=== PATIENT | male | born 1980 | race Caucasian/White ===

== ENCOUNTER 2021-06-14 20:40 | Inpatient (IN) | payer OTHER ==
[~2021-06-14] VITALS: Ht 175.3 cm; Wt 70.2 kg
[2021-06-14] MEDS ORDERED: CEPHALEXIN MONOHYDRATE 500 MG CAPSULE PO ONE (23:15)
[2021-06-14] MEDS ORDERED: IBUPROFEN 600 MG TABLET PO ONE (23:15)
[2021-06-14] MEDS ORDERED: SULFAMETHOX/TRIMETH DS 800-160 MG/TABLET PO ONE (23:15)
[2021-06-15] MEDS ORDERED: VANCOMYCIN HCL 1 GM/D5% WATER 200 ML IV ONE (02:15)
[2021-06-15 02:18] LABS: BASOPHILS % (AUTO) 0.6 % (0.0-2.0); EOSINOPHILS % (AUTO) 1.9 % (1.0-6.0); HEMATOCRIT 36.7 % (41-53); HEMOGLOBIN 12.3 g/dL (13.5-17.5); LYMPHOCYTES # (AUTO) 2.7 K/uL (1.0-4.8); LYMPHOCYTES % (AUTO) 34.2 % (22.0-44.0); MEAN CORPUSCULAR HEMOGLOBIN 28.3 pg (26.0-34.0); MEAN CORPUSCULAR HGB CONC 33.4 G/dL (31.0-37.0); MEAN CORPUSCULAR VOLUME 85 fL (80-100); MONOCYTES # (AUTO) 1.1 K/uL (0.1-1.0); MONOCYTES % (AUTO) 13.7 % (2.0-9.0); NEUTROPHILS # (AUTO) 3.9 K/uL (1.8-7.7); NEUTROPHILS % (AUTO) 49.6 % (40.0-70.0); PLATELET COUNT (AUTO) 418 K/uL (150-450); RED BLOOD CELL COUNT(AUTO) 4.33 MIL/uL (4.50-5.90); RED CELL DISTRIBUTION WIDTH 14.4 % (11.5-14.5)
[2021-06-15 02:31] LABS: ANION GAP 7 mmol/L (8-16); CALCIUM, TOTAL 8.5 mg/dL (8.8-10.5); CARBON DIOXIDE 29 mmol/L (22-29); CHLORIDE 102 mmol/L (98-107); CREATININE 0.92 mg/dL (0.60-1.30); GLOMERULAR FILTR. RATE CALC > 60 mL/min (>60); GLUCOSE,RANDOM 83 mg/dL (70-110); POTASSIUM 3.5 mmol/L (3.5-5.1); SODIUM SERUM 138 mmol/L (136-145); UREA NITROGEN, BLOOD 13 mg/dL (7-18)
[2021-06-15 02:37] LABS: ALANINE AMINOTRANSFERASE 24 U/L (12-78); ALBUMIN 3.1 g/dL (3.4-5.0); ALKALINE PHOSPHATASE 99 U/L (46-116); ASPARTATE AMINOTRANSFERASE 22 U/L (15-37); BILIRUBIN,TOTAL 0.4 mg/dL (0.1-1.0); TOTAL PROTEIN, SERUM 7.3 g/dL (6.4-8.2)
[2021-06-15] MEDS ORDERED: SODIUM CHLORIDE 0.9% 100 ML ONE (02:45)
[2021-06-15] MEDS ORDERED: IOHEXOL 350 MG/ML 100 ML VIAL ONE (02:45)
[2021-06-15 04:12] LABS: ERYTHROCYTE SEDIMENTATION RATE 17 MM/HR (0-15)
[2021-06-15 04:15] LABS: COVID AG,FIA SOURCE NASOPHARYNGEAL
[2021-06-15] MEDS ORDERED: ONDANSETRON HCL 4 MG/2 ML VIAL IVP PRN (04:30)
[2021-06-15] MEDS: HEPARIN SODIUM,PORCINE 5,000 UNITS/ML VIAL SQ SCH ×2 (08:41→16:26)
[2021-06-15 11:48] VITALS: BP 108/64
[2021-06-15] MEDS ORDERED: ASPI-1450 PO (12:42)
[2021-06-15] MEDS ORDERED: BICT1TAB PO (12:42)
[2021-06-15] MEDS ORDERED: ARIP10TA38 PO (12:42)
[2021-06-15] MEDS ORDERED: GABA-1181 PO (12:42)
[2021-06-15] MEDS ORDERED: ASPI-1444 PO (12:44)
[2021-06-15] MEDS ORDERED: *CLINICAL-CEFEPIME DOSING CLINICAL ONE (13:00)
[2021-06-15] MEDS ORDERED: VANCOMYCIN HCL 750 MG in DEXTROSE 5%-WATER 250 ML IV SCH (14:00)
[2021-06-15] MEDS ORDERED: CEFEPIME HCL 2 GM in DEXTROSE 5%-WATER 50 ML IV SCH (14:00)
[2021-06-15] MEDS: BICTEGRAV/EMTRICIT/TENOFOV ALA 50-200-25 MG TABLET PO SCH (14:05)
[2021-06-15] MEDS: ASPIRIN 81 MG DR TABLET PO SCH (14:05)
[2021-06-15] MEDS: ARIPiprazole 10 MG TABLET PO SCH (14:05)
[2021-06-15] MEDS: SODIUM CHLORIDE 0.9% 1,000 ML IV SCH (14:06)
[2021-06-15 15:11] VITALS: BP 96/55
[2021-06-15 18:32] LABS: AMPHET/METH SCREEN,URINE POSITIVE (NEGATIVE); BARBITURATE SCREEN, URINE NEGATIVE (NEGATIVE); BENZODIAZEPINES SCREEN,URINE NEGATIVE (NEGATIVE); CANNABINOID SCREEN,URINE POSITIVE (NEGATIVE); COCAINE SCREEN,URINE NEGATIVE (NEGATIVE); METHADONE SCREEN, URINE NEGATIVE (NEGATIVE); OPIATE SCREEN,URINE NEGATIVE (NEGATIVE)
[2021-06-15 18:34] LABS: PHENCYCLIDINE SCREEN,URINE NEGATIVE (NEGATIVE)
[2021-06-15 19:30] VITALS: BP 98/66
[2021-06-15] MEDS: GABAPENTIN 300 MG CAPSULE PO SCH (21:05)
[2021-06-16 04:58] VITALS: BP 128/73
[2021-06-16 06:24] LABS: BASOPHILS % (AUTO) 0.4 % (0.0-2.0); EOSINOPHILS % (AUTO) 2.3 % (1.0-6.0); HEMATOCRIT 40.3 % (41-53); HEMOGLOBIN 13.3 g/dL (13.5-17.5); LYMPHOCYTES # (AUTO) 2.4 K/uL (1.0-4.8); LYMPHOCYTES % (AUTO) 34.5 % (22.0-44.0); MEAN CORPUSCULAR HEMOGLOBIN 28.2 pg (26.0-34.0); MEAN CORPUSCULAR VOLUME 86 fL (80-100); MONOCYTES # (AUTO) 0.9 K/uL (0.1-1.0); MONOCYTES % (AUTO) 13.3 % (2.0-9.0); NEUTROPHILS # (AUTO) 3.4 K/uL (1.8-7.7); NEUTROPHILS % (AUTO) 49.5 % (40.0-70.0); PLATELET COUNT (AUTO) 393 K/uL (150-450); RED BLOOD CELL COUNT(AUTO) 4.72 MIL/uL (4.50-5.90); RED CELL DISTRIBUTION WIDTH 14.2 % (11.5-14.5)
[2021-06-16 06:43] LABS: ALANINE AMINOTRANSFERASE 20 U/L (12-78); ALBUMIN 2.9 g/dL (3.4-5.0); ALKALINE PHOSPHATASE 94 U/L (46-116); ANION GAP 9 mmol/L (8-16); ASPARTATE AMINOTRANSFERASE 19 U/L (15-37); BILIRUBIN,TOTAL 0.4 mg/dL (0.1-1.0); CALCIUM, TOTAL 8.7 mg/dL (8.8-10.5); CARBON DIOXIDE 25 mmol/L (22-29); CHLORIDE 103 mmol/L (98-107); CREATININE 0.79 mg/dL (0.60-1.30); GLOMERULAR FILTR. RATE CALC > 60 mL/min (>60); GLUCOSE,RANDOM 108 mg/dL (70-110); POTASSIUM 4.1 mmol/L (3.5-5.1); SODIUM SERUM 137 mmol/L (136-145); TOTAL PROTEIN, SERUM 7.3 g/dL (6.4-8.2); UREA NITROGEN, BLOOD 11 mg/dL (7-18)
[2021-06-16] MEDS: BICTEGRAV/EMTRICIT/TENOFOV ALA 50-200-25 MG TABLET PO SCH (08:17)
[2021-06-16] MEDS: SODIUM CHLORIDE 0.9% 1,000 ML IV SCH (08:17)
[2021-06-16] MEDS: HEPARIN SODIUM,PORCINE 5,000 UNITS/ML VIAL SQ SCH ×3 (08:18→15:46)
[2021-06-16] MEDS: ASPIRIN 81 MG DR TABLET PO SCH (08:18)
[2021-06-16] MEDS: GABAPENTIN 300 MG CAPSULE PO SCH ×2 (08:18→20:01)
[2021-06-16] MEDS: ARIPiprazole 10 MG TABLET PO SCH (08:18)
[2021-06-16 09:06] VITALS: BP 102/66
[2021-06-16 16:22] VITALS: BP 118/65
[2021-06-16 19:47] VITALS: BP 117/70
[2021-06-17] MEDS: SODIUM CHLORIDE 0.9% 1,000 ML IV SCH (01:02)
[2021-06-17 04:00] VITALS: BP 113/59
[2021-06-17] MEDS ORDERED: RINGERS SOLUTION,LACTATED 1,000 ML IV SCH (06:10)
[2021-06-17 06:42] LABS: BASOPHILS % (AUTO) 0.5 % (0.0-2.0); EOSINOPHILS % (AUTO) 2.2 % (1.0-6.0); HEMATOCRIT 38.4 % (41-53); HEMOGLOBIN 12.6 g/dL (13.5-17.5); LYMPHOCYTES # (AUTO) 2.6 K/uL (1.0-4.8); LYMPHOCYTES % (AUTO) 35.4 % (22.0-44.0); MEAN CORPUSCULAR HEMOGLOBIN 28.1 pg (26.0-34.0); MEAN CORPUSCULAR HGB CONC 32.8 G/dL (31.0-37.0); MEAN CORPUSCULAR VOLUME 86 fL (80-100); MONOCYTES # (AUTO) 0.9 K/uL (0.1-1.0); MONOCYTES % (AUTO) 12.9 % (2.0-9.0); NEUTROPHILS # (AUTO) 3.6 K/uL (1.8-7.7); PLATELET COUNT (AUTO) 387 K/uL (150-450); RED BLOOD CELL COUNT(AUTO) 4.48 MIL/uL (4.50-5.90); RED CELL DISTRIBUTION WIDTH 14.4 % (11.5-14.5)
[2021-06-17] MEDS ORDERED: ETHYL ALCOHOL 62% ANTISEPTIC NASAL INHALANT 0.6 ML AMPUL NASAL ONE (06:45)
[2021-06-17 06:59] LABS: ANION GAP 5 mmol/L (8-16); CALCIUM, TOTAL 8.6 mg/dL (8.8-10.5); CARBON DIOXIDE 26 mmol/L (22-29); CHLORIDE 103 mmol/L (98-107); CREATININE 0.79 mg/dL (0.60-1.30); GLOMERULAR FILTR. RATE CALC > 60 mL/min (>60); GLUCOSE,RANDOM 99 mg/dL (70-110); SODIUM SERUM 134 mmol/L (136-145); UREA NITROGEN, BLOOD 10 mg/dL (7-18)
[2021-06-17] MEDS ORDERED: BUPIVACAINE HCL/PF 0.5% 30 ML VIAL PERC ONE (07:33)
[2021-06-17] MEDS ORDERED: 0.9% SODIUM CHLORIDE 1000 ML IRRIG SOLUTION BAG IRRIG ONE (07:33)
[2021-06-17] MEDS ORDERED: LIDOCAINE/PF 1% 30 ML VIAL PERC ONE (07:33)
[2021-06-17] MEDS ORDERED: HYDROmorphone 2 MG/ML VIAL IVP PRN (08:15)
[2021-06-17] MEDS ORDERED: FentaNYL CITRATE PF 100 MCG/2 ML VIAL IVP PRN (08:15)
[2021-06-17] MEDS: ASPIRIN 81 MG DR TABLET PO SCH (09:52)
[2021-06-17] MEDS: ARIPiprazole 10 MG TABLET PO SCH (09:52)
[2021-06-17] MEDS: BICTEGRAV/EMTRICIT/TENOFOV ALA 50-200-25 MG TABLET PO SCH (09:52)
[2021-06-17] MEDS: GABAPENTIN 300 MG CAPSULE PO SCH ×2 (09:53→20:43)
[2021-06-17] MEDS ORDERED: VANCOMYCIN HCL 1.25 GM in DEXTROSE 5%-WATER 250 ML IV ONE (10:45)
[2021-06-17 11:42] VITALS: BP 110/60
[2021-06-17] MEDS: PIPERACILLIN/TAZO 3.375 GM/D5W 50 ML IV SCH ×3 (11:42→23:15)
[2021-06-17] MEDS ORDERED: PROPOFOL 1% 20 ML VIAL IVP ONE (12:00)
[2021-06-17] MEDS ORDERED: MIDAZOLAM HCL 2 MG/2 ML VIAL IVP ONE (12:00)
[2021-06-17] MEDS ORDERED: FentaNYL CITRATE PF 100 MCG/2 ML VIAL IVP ONE (12:00)
[2021-06-17 15:25] VITALS: BP 115/69
[2021-06-17] MEDS: VANCOMYCIN HCL 1 GM/D5% WATER 200 ML IV SCH (15:50)
[2021-06-17] MEDS: ACETAMINOPHEN 325 MG TABLET PO PRN (17:21)
[2021-06-17 19:50] VITALS: BP 106/54
[2021-06-17] MEDS: OXYGEN THERAPY IH SCH (20:43)
[2021-06-18] MEDS: VANCOMYCIN HCL 1 GM/D5% WATER 200 ML IV SCH ×3 (00:01→16:41)
[2021-06-18 04:20] VITALS: BP 108/63
[2021-06-18] MEDS: SODIUM CHLORIDE 0.9% 1,000 ML IV SCH (04:51)
[2021-06-18] MEDS: PIPERACILLIN/TAZO 3.375 GM/D5W 50 ML IV SCH ×4 (04:56→23:13)
[2021-06-18] MEDS: OXYGEN THERAPY IH SCH (08:00)
[2021-06-18] MEDS: GABAPENTIN 300 MG CAPSULE PO SCH ×2 (08:37→20:18)
[2021-06-18] MEDS: ASPIRIN 81 MG DR TABLET PO SCH (08:37)
[2021-06-18] MEDS: ARIPiprazole 10 MG TABLET PO SCH (08:37)
[2021-06-18] MEDS: BICTEGRAV/EMTRICIT/TENOFOV ALA 50-200-25 MG TABLET PO SCH (08:37)
[2021-06-18] MEDS: ACETAMINOPHEN 325 MG TABLET PO PRN ×2 (08:38→16:41)
[2021-06-18 08:45] VITALS: BP 119/60
[2021-06-18 09:32] LABS: ANION GAP 9 mmol/L (8-16); CALCIUM, TOTAL 8.6 mg/dL (8.8-10.5); CARBON DIOXIDE 26 mmol/L (22-29); CHLORIDE 101 mmol/L (98-107); CREATININE 0.93 mg/dL (0.60-1.30); GLOMERULAR FILTR. RATE CALC > 60 mL/min (>60); GLUCOSE,RANDOM 147 mg/dL (70-110); POTASSIUM 3.6 mmol/L (3.5-5.1); SODIUM SERUM 136 mmol/L (136-145); UREA NITROGEN, BLOOD 9 mg/dL (7-18); VANCOMYCIN,RANDOM 31.9 mcg/mL (25.0-50.0)
[2021-06-18 16:38] VITALS: BP 106/68
[2021-06-18 20:31] VITALS: BP 108/65
[2021-06-19] MEDS: VANCOMYCIN HCL 1 GM/D5% WATER 200 ML IV SCH ×4 (00:17→23:33)
[2021-06-19] MEDS: SODIUM CHLORIDE 0.9% 1,000 ML IV SCH ×2 (03:08→17:44)
[2021-06-19] MEDS: PIPERACILLIN/TAZO 3.375 GM/D5W 50 ML IV SCH ×4 (04:42→22:39)
[2021-06-19 05:05] VITALS: BP 112/70
[2021-06-19] MEDS: OXYGEN THERAPY IH SCH ×2 (08:00→20:48)
[2021-06-19 08:04] VITALS: BP 116/73
[2021-06-19] MEDS: BICTEGRAV/EMTRICIT/TENOFOV ALA 50-200-25 MG TABLET PO SCH (08:52)
[2021-06-19] MEDS: ACETAMINOPHEN 325 MG TABLET PO PRN ×2 (08:53→13:39)
[2021-06-19] MEDS: ARIPiprazole 10 MG TABLET PO SCH (08:53)
[2021-06-19] MEDS: GABAPENTIN 300 MG CAPSULE PO SCH ×2 (08:53→20:47)
[2021-06-19] MEDS: ASPIRIN 81 MG DR TABLET PO SCH (08:53)
[2021-06-19 11:48] LABS: ANION GAP 9 mmol/L (8-16); CALCIUM, TOTAL 8.6 mg/dL (8.8-10.5); CARBON DIOXIDE 27 mmol/L (22-29); CHLORIDE 101 mmol/L (98-107); CREATININE 0.84 mg/dL (0.60-1.30); GLOMERULAR FILTR. RATE CALC > 60 mL/min (>60); GLUCOSE,RANDOM 107 mg/dL (70-110); SODIUM SERUM 137 mmol/L (136-145); UREA NITROGEN, BLOOD 9 mg/dL (7-18)
[2021-06-19 15:15] VITALS: BP 122/71
[2021-06-19 19:47] VITALS: BP 108/64
[2021-06-20] MEDS: PIPERACILLIN/TAZO 3.375 GM/D5W 50 ML IV SCH ×2 (04:18→12:03)
[2021-06-20 04:23] VITALS: BP 137/85
[2021-06-20 06:39] LABS: ANION GAP 7 mmol/L (8-16); CALCIUM, TOTAL 8.9 mg/dL (8.8-10.5); CARBON DIOXIDE 27 mmol/L (22-29); CHLORIDE 103 mmol/L (98-107); CREATININE 0.83 mg/dL (0.60-1.30); GLOMERULAR FILTR. RATE CALC > 60 mL/min (>60); GLUCOSE,RANDOM 95 mg/dL (70-110); SODIUM SERUM 137 mmol/L (136-145); UREA NITROGEN, BLOOD 9 mg/dL (7-18); VANCOMYCIN,RANDOM 17.1 mcg/mL (25.0-50.0)
[2021-06-20] MEDS: OXYGEN THERAPY IH SCH ×2 (08:00→20:56)
[2021-06-20 09:10] VITALS: BP 122/75
[2021-06-20] MEDS: GABAPENTIN 300 MG CAPSULE PO SCH ×2 (09:42→20:52)
[2021-06-20] MEDS: BICTEGRAV/EMTRICIT/TENOFOV ALA 50-200-25 MG TABLET PO SCH (09:42)
[2021-06-20] MEDS: ARIPiprazole 10 MG TABLET PO SCH (09:42)
[2021-06-20] MEDS: ASPIRIN 81 MG DR TABLET PO SCH (09:42)
[2021-06-20] MEDS: VANCOMYCIN HCL 1.25 GM in DEXTROSE 5%-WATER 250 ML IV SCH ×3 (09:42→23:54)
[2021-06-20] MEDS: SODIUM CHLORIDE 0.9% 1,000 ML IV SCH ×2 (09:42→15:18)
[2021-06-20] MEDS: LEVOFLOXACIN 750 MG/D5% WATER 150 ML IV SCH (15:19)
[2021-06-20 15:42] VITALS: BP 114/71
[2021-06-20] MEDS ORDERED: LORazepam 1 MG TABLET PO PRN (20:15)
[2021-06-20 20:16] VITALS: BP 132/74
[2021-06-21 05:13] VITALS: BP 126/88
[2021-06-21 07:23] LABS: ANION GAP 6 mmol/L (8-16); CALCIUM, TOTAL 9.4 mg/dL (8.8-10.5); CARBON DIOXIDE 31 mmol/L (22-29); CHLORIDE 103 mmol/L (98-107); CREATININE 0.87 mg/dL (0.60-1.30); GLOMERULAR FILTR. RATE CALC > 60 mL/min (>60); GLUCOSE,RANDOM 98 mg/dL (70-110); POTASSIUM 4.7 mmol/L (3.5-5.1); SODIUM SERUM 140 mmol/L (136-145); UREA NITROGEN, BLOOD 12 mg/dL (7-18)
[2021-06-21] MEDS: VANCOMYCIN HCL 1.25 GM in DEXTROSE 5%-WATER 250 ML IV SCH ×3 (08:36→23:35)
[2021-06-21 08:44] VITALS: BP 138/87
[2021-06-21] MEDS: ASPIRIN 81 MG DR TABLET PO SCH (10:50)
[2021-06-21] MEDS: BICTEGRAV/EMTRICIT/TENOFOV ALA 50-200-25 MG TABLET PO SCH (10:50)
[2021-06-21] MEDS: GABAPENTIN 300 MG CAPSULE PO SCH ×2 (10:50→20:13)
[2021-06-21] MEDS: ARIPiprazole 10 MG TABLET PO SCH (10:51)
[2021-06-21] MEDS ORDERED: LEVO750T68 PO (11:49)
[2021-06-21] MEDS: LEVOFLOXACIN 750 MG/D5% WATER 150 ML IV SCH (14:55)
[2021-06-21 16:06] VITALS: BP 118/76
[2021-06-21 20:00] VITALS: BP 128/72
[2021-06-21] MEDS: OXYGEN THERAPY IH SCH (20:13)
[2021-06-21] MEDS: SODIUM CHLORIDE 0.9% 1,000 ML IV SCH (20:13)
[2021-06-22 04:16] VITALS: BP 121/82
[2021-06-22 07:06] LABS: ANION GAP 4 mmol/L (8-16); CALCIUM, TOTAL 8.8 mg/dL (8.8-10.5); CARBON DIOXIDE 29 mmol/L (22-29); CHLORIDE 104 mmol/L (98-107); CREATININE 0.83 mg/dL (0.60-1.30); GLOMERULAR FILTR. RATE CALC > 60 mL/min (>60); GLUCOSE,RANDOM 88 mg/dL (70-110); POTASSIUM 4.1 mmol/L (3.5-5.1); SODIUM SERUM 137 mmol/L (136-145); UREA NITROGEN, BLOOD 11 mg/dL (7-18); VANCOMYCIN,RANDOM 18.9 mcg/mL (25.0-50.0)
[2021-06-22] MEDS: OXYGEN THERAPY IH SCH ×2 (08:00→20:00)
[2021-06-22] MEDS: GABAPENTIN 300 MG CAPSULE PO SCH ×2 (08:08→20:38)
[2021-06-22] MEDS: ARIPiprazole 10 MG TABLET PO SCH (08:08)
[2021-06-22] MEDS: ASPIRIN 81 MG DR TABLET PO SCH (08:08)
[2021-06-22] MEDS: VANCOMYCIN HCL 1.25 GM in DEXTROSE 5%-WATER 250 ML IV SCH ×3 (08:08→23:21)
[2021-06-22] MEDS: BICTEGRAV/EMTRICIT/TENOFOV ALA 50-200-25 MG TABLET PO SCH (08:08)
[2021-06-22 08:17] VITALS: BP 124/77
[2021-06-22] MEDS: LEVOFLOXACIN 750 MG TABLET PO SCH (12:05)
[2021-06-22] MEDS ORDERED: BICT1TAB PO (14:48)
[2021-06-22] MEDS: SODIUM CHLORIDE 0.9% 1,000 ML IV SCH (16:26)
[2021-06-22] MEDS: ZOLPIDEM TARTRATE 5 MG TABLET PO PRN (20:38)
[2021-06-22 20:41] VITALS: BP 121/77
[2021-06-23 05:40] VITALS: BP 120/71
[2021-06-23] MEDS: BICTEGRAV/EMTRICIT/TENOFOV ALA 50-200-25 MG TABLET PO SCH (07:58)
[2021-06-23] MEDS: VANCOMYCIN HCL 1.25 GM in DEXTROSE 5%-WATER 250 ML IV SCH ×3 (07:58→23:39)
[2021-06-23] MEDS: GABAPENTIN 300 MG CAPSULE PO SCH ×2 (07:58→20:27)
[2021-06-23] MEDS: LEVOFLOXACIN 750 MG TABLET PO SCH (07:59)
[2021-06-23] MEDS: ASPIRIN 81 MG DR TABLET PO SCH (07:59)
[2021-06-23] MEDS: ARIPiprazole 10 MG TABLET PO SCH (07:59)
[2021-06-23] MEDS: OXYGEN THERAPY IH SCH ×2 (08:00→20:00)
[2021-06-23 12:08] LABS: ANION GAP 8 mmol/L (8-16); CALCIUM, TOTAL 8.8 mg/dL (8.8-10.5); CARBON DIOXIDE 28 mmol/L (22-29); CHLORIDE 103 mmol/L (98-107); CREATININE 0.87 mg/dL (0.60-1.30); GLOMERULAR FILTR. RATE CALC > 60 mL/min (>60); GLUCOSE,RANDOM 118 mg/dL (70-110); POTASSIUM 3.8 mmol/L (3.5-5.1); SODIUM SERUM 139 mmol/L (136-145); UREA NITROGEN, BLOOD 14 mg/dL (7-18)
[2021-06-23] MEDS ORDERED: SODIUM CHLORIDE 0.9% 500 ML IV ONE (15:17)
[2021-06-23 16:28] VITALS: BP 125/70
[2021-06-23 20:11] VITALS: BP 126/76
[2021-06-23] MEDS: ZOLPIDEM TARTRATE 5 MG TABLET PO PRN (20:27)
[2021-06-24 07:08] LABS: ANION GAP 5 mmol/L (8-16); CALCIUM, TOTAL 8.5 mg/dL (8.8-10.5); CARBON DIOXIDE 30 mmol/L (22-29); CHLORIDE 103 mmol/L (98-107); CREATININE 0.91 mg/dL (0.60-1.30); GLOMERULAR FILTR. RATE CALC > 60 mL/min (>60); GLUCOSE,RANDOM 87 mg/dL (70-110); SODIUM SERUM 138 mmol/L (136-145); UREA NITROGEN, BLOOD 13 mg/dL (7-18)
[2021-06-24] MEDS: OXYGEN THERAPY IH SCH (08:00)
[2021-06-24 08:04] VITALS: BP 124/73
[2021-06-24] MEDS: VANCOMYCIN HCL 1.25 GM in DEXTROSE 5%-WATER 250 ML IV SCH ×2 (08:41→15:18)
[2021-06-24] MEDS: ASPIRIN 81 MG DR TABLET PO SCH (08:42)
[2021-06-24] MEDS: LEVOFLOXACIN 750 MG TABLET PO SCH (08:42)
[2021-06-24] MEDS: BICTEGRAV/EMTRICIT/TENOFOV ALA 50-200-25 MG TABLET PO SCH (08:42)
[2021-06-24] MEDS: GABAPENTIN 300 MG CAPSULE PO SCH (08:42)
[2021-06-24] MEDS: ARIPiprazole 10 MG TABLET PO SCH (08:42)
[2021-06-24 16:06] VITALS: BP 105/56
[2021-06-24] MEDS ORDERED: VANC1.257 IVPB (16:48)
== END 2021-06-24 18:43 | DRG 344 ==
LOC: EMS 20:44 → 6N 06-15 11:05
PROVIDERS: ADMIT Internal Medicine; ATTEND Internal Medicine
PROC: 0QBR0ZX Excision of Left Toe Phalanx, Open Approach, Diagnostic (ICD-10-PCS; principal; 2021-06-17 07:33)
PROC: 02HV33Z Insertion of Infusion Device into Superior Vena Cava, Percutaneous Approach (ICD-10-PCS; 2021-06-21)
DX: E11.69 Type 2 diabetes mellitus with other specified complication (principal); M86.8X7 Other osteomyelitis, ankle and foot; R65.10 Systemic inflammatory response syndrome (SIRS) of non-infectious origin without acute organ dysfunction; E11.621 Type 2 diabetes mellitus with foot ulcer; E11.42 Type 2 diabetes mellitus with diabetic polyneuropathy; L97.529 Non-pressure chronic ulcer of other part of left foot with unspecified severity; F12.90 Cannabis use, unspecified, uncomplicated; F15.10 Other stimulant abuse, uncomplicated; F17.210 Nicotine dependence, cigarettes, uncomplicated; M21.379 Foot drop, unspecified foot; L08.9 Local infection of the skin and subcutaneous tissue, unspecified; S90.935A Unspecified superficial injury of left lesser toe(s), initial encounter; X58.XXXA Exposure to other specified factors, initial encounter; Z20.822 Contact with and (suspected) exposure to COVID-19; Y93.89 Activity, other specified; Y92.89 Other specified places as the place of occurrence of the external cause; Y99.8 Other external cause status; Z99.3 Dependence on wheelchair; Z86.718 Personal history of other venous thrombosis and embolism; Z59.00 Homelessness unspecified; Z79.899 Other long term (current) drug therapy
CPT/HCPCS: 36245; 36569; 71045; 73701; 76937; 80048; 80053; 80202; 80307; 84145; 85025; 85651; 86140; 87040; 87070; 87075; 87081; 87205; 88307; 88311; 93926; 99285; J0690; J0692; J1644; J1956; J2250; J2543; J2704; J3010; J3370; J3490; J7030; J7040; J7050; J7060; J7120; Q9967; 36415-L1; 36415-TC; Z7610